=== PATIENT | male | born 1990 | race African-American/Black ===

== ENCOUNTER 2021-05-01 16:57 | Emergency (ER) | payer SELFPAY ==
[~2021-05-01] VITALS: Ht 175.3 cm; Wt 70.0 kg
[2021-05-01 18:15] VITALS: BP 123/75
[2021-05-01 18:47] LABS: BASOPHILS % 0.5 % (0.0-2.0); EOSINOPHILS % 1.7 % (0.0-5.0); HEMATOCRIT. 43.5 % (42.0-52.0); HEMOGLOBIN. 14.6 g/dL (14.0-18.0); LYMPHOCYTES % 12.8 % (20.0-50.0); MEAN CORPUSCULAR HEMOGLOBIN 28.2 pg (28.0-32.0); MEAN CORPUSCULAR VOLUME 83.8 fL (80.0-94.0); MEAN PLATELET VOLUME 9.1 fl (7.4-10.4); MONOCYTES % 6.6 % (2.0-8.0); NEUTROPHILS % 78.4 % (40.0-76.0); PLATELET 209 x1000/uL (130-400); RED CELL DISTRIBUTION WIDTH 14.1 % (11.6-14.6)
[2021-05-01 18:49] LABS: CHLORIDE 106 mEq/L (98-107)
[2021-05-01 18:51] LABS: ETHANOL BLOOD < 10 mg/dL
== END 2021-05-01 19:29 | disposition home or self-care (01) ==
LOC: ER 16:57
DX: R46.89 Other symptoms and signs involving appearance and behavior (principal); E87.6 Hypokalemia
CPT/HCPCS: 36415; 80053; 80320; 85025; 99283; G0480